=== PATIENT | female | born 1955 | race Two or more races ===

== ENCOUNTER 2017-12-07 12:54 | Inpatient (IN) | payer MEDICAID ==
[~2017-12-07] VITALS: Ht 157.5 cm; Wt 94.8 kg
[2017-12-07] MEDS ORDERED: ONDANSETRON HCL/PF 4 MG/2 ML VIAL IVP ONE (13:30)
[2017-12-07] MEDS ORDERED: MORPHINE SULFATE INJ 2 MG/ML DISP.SYRIN IV ONE (13:30)
[2017-12-07] MEDS ORDERED: IV NS 0.9% 1,000 ML BAG IV ONE (13:30)
--- NOTE | 2017-12-07 13:30 | NUR ---
PT BROUGHT IN FROM HOME WITH EPIGASTRIC PAIN FOR ONE DAY WITH NAUSEA AND VOMITING X 1 PT ALERT ARMEANIAN SPEAKING PT ABLE TO EXPRESS SELF BLOOD SUGAR 283. PIV PLACED BLOOD SAMPLE OBTAINED ULTRA SOUND DONE. PT ST AT 105 EKG DONE WELL. WILL CONTINUE TO MONITOR
[2017-12-07] MEDS ORDERED: ONDANSETRON HCL/PF 4 MG/2 ML VIAL ONE (13:36)
[2017-12-07] MEDS ORDERED: MORPHINE SULFATE INJ 4 MG/ML DISP.SYRIN ONE (13:36)
[2017-12-07 13:37] LABS: BASOPHILS % (AUTO) 0.1 % (0.0-2.0); EOSINOPHILS % (AUTO) 0.1 % (0.0-6.0); HEMATOCRIT 38 % (33-45); HEMOGLOBIN 12.4 g/dL (11.5-14.8); LYMPHOCYTES # (AUTO) 0.4 /CMM (0.8-4.8); LYMPHOCYTES % (AUTO) 2.2 % (20.0-44.0); MEAN CORPUSCULAR HGB CONC 33 g/dl (31.0-36.0); MEAN CORPUSCULAR VOLUME 88 fL (82-100); MONOCYTES # (AUTO) 1.2 /CMM (0.1-1.30); MONOCYTES % (AUTO) 6.1 % (2.0-12.0); NEUTROPHILS # (AUTO) 17.6 /CMM (1.8-8.9); NEUTROPHILS % (AUTO) 91.5 % (43.0-81.0); PLATELET COUNT (AUTO) 208 /CMM (150-450); RDW COEFFICIENT OF VARIATION 12.4 (11.5-15.0); RED BLOOD CELL COUNT(AUTO) 4.28 MIL/uL (4.0-5.2); WHITE BLOOD COUNT (AUTO) 19.2 K/uL (4.3-11.0)
[2017-12-07 13:48] LABS: CALCIUM, SERUM 8.9 mg/dL (8.5-10.1); CARBON DIOXIDE 26 mmol/L (21-32); CHLORIDE 95 mmol/L (98-107); CREATININE 0.9 mg/dL (0.6-1.3); GLUCOSE 313 mg/dL (74-106); POTASSIUM 4.4 mmol/L (3.5-5.1); SODIUM SERUM 132 mmol/L (136-145); UREA NITROGEN, BLOOD 16 mg/dL (7-18)
[2017-12-07 13:53] LABS: ALANINE AMINOTRANSFERASE 17 U/L (12-78); ALBUMIN 3.2 g/dL (3.4-5.0); ALKALINE PHOSPHATASE 104 U/L (46-116); ASPARTATE AMINOTRANSFERASE 16 U/L (15-37); BILIRUBIN,DIRECT 0.1 mg/dL (0.0-0.2); BILIRUBIN,TOTAL 0.6 mg/dL (0.2-1.0); INR 0.94 (0.87-1.13); LIPASE 141 U/L (73-393); TOTAL PROTEIN, SERUM 7.7 g/dL (6.4-8.2)
[2017-12-07 13:58] LABS: TROPONIN I < 0.017 ng/mL (0.00-0.056)
[2017-12-07] MEDS ORDERED: IOHEXOL-300 100 ML VIAL IV ONE (14:21)
[2017-12-07] MEDS ORDERED: IV NS 0.9% 250 ML IV ONE (14:22)
[2017-12-07] MEDS ORDERED: CT SWABBABLE VALVE TRANS SET 1 EA INFUS.SET MC ONE (14:22)
[2017-12-07 15:50] LABS: APPEARANCE,URINE CLOUDY (CLEAR); BILIRUBIN,URINE NEGATIVE (NEGATIVE); BLOOD, URINE 2+ Ery/uL (NEGATIVE); COLOR,URINE YELLOW (YELLOW); KETONES,URINE NEGATIVE (NEGATIVE); LEUKOCYTE ESTERASE ,URINE 1+ (NEGATIVE); NITRITE, URINE POSITIVE (NEGATIVE); PROTEIN,URINE 2+ mg/dl (NEGATIVE); UGLUCOSE 2+ mg/dL (NEGATIVE); UROBILINOGEN,URINE 0.2 EU/dL (0.2)
[2017-12-07] MEDS ORDERED: CEFTRIAXONE 1GM BAG (ER ONLY) 1 GM/50 ML PIGGYBACK IV ONE (16:00)
[2017-12-07 16:03] LABS: BACTERIA,URINE 3+ /HPF (None Seen); SQUAMOUS EPITHELIAL CELL,UR 0-2 /HPF (None Seen); WBC,URINE 21-50 /HPF (0-3)
[2017-12-07] MEDS ORDERED: CEFTRIAXONE 1 G VIAL ONE (16:08)
--- NOTE | 2017-12-07 16:13 | NUR ---
CALLED [facility] WATER TESTER WAS PAGED.
--- NOTE | 2017-12-07 16:39 | NUR ---
JUAN JOSE COHEN CALLED BACK ON THE PHONE WITH PHILIP WILLAMS.
[2017-12-07] MEDS ORDERED: INSU100V7 SQ (16:45)
[2017-12-07] MEDS ORDERED: ROSU5TAB PO (16:45)
[2017-12-07] MEDS ORDERED: ASPI-1169 PO (16:45)
[2017-12-07] MEDS ORDERED: SITA50TA PO (16:45)
[2017-12-07] MEDS ORDERED: INSU100V27 SQ (16:45)
[2017-12-07 17:00] VITALS: BP 117/53
--- NOTE | 2017-12-07 17:35 | NUR ---
LABORER SYRUP MACHINEPHYSICIAN ASSISTANT NOTE RECEIVED PT FROM ER VIA GURNEY WITH SON AND DAUGHTER IN LAW. PT IS ALERT AND ORIENTED X4, DENIES N/V, SOB AND CHEST PAIN AT THIS TIME. VS STABLE, PLACED PT IN GOWN, WITH NEW ID BAND AND CONDUCTOR SYMPHONIC ORCHESTRA. PT IS CURRENTLY SINUS RHYTHM, HR 86. R FA #20G IV IS SALINE LOCKED, CLEAN, DRY AND INTACT. SKIN CHECK AND PHOTOS DOCUMENTED PER POLICY AND PLACED IN CHART. ALL BELONGINGS ACCOUNTED FOR AND BELONGINGS LIST SIGNED AND PLACED IN CHART. UNIT ORIENTATION PROVIDED TO PT AND FAMILY, ALL VERBALIZED UNDERSTANDING OF USING CALL LIGHT TO CALL FOR ASSISTANCE PRIOR TO GETTING PT OUT OF BED. AWAITING ADMITTING ORDERS.
[2017-12-07] MEDS ORDERED: Z GUARD REMEDY 2 OZ OINT TP PRN (18:30)
[2017-12-07] MEDS ORDERED: DEXTROSE 50%-WATER 50 ML DISP.SYRIN IV PRN (18:30)
[2017-12-07] MEDS ORDERED: MAG HYDROX/AL HYDROX/SIMETH 30 ML UDC PO PRN (18:30)
[2017-12-07] MEDS ORDERED: MAGNESIUM HYDROXIDE 30 ML UDC PO PRN (18:30)
[2017-12-07] MEDS ORDERED: MORPHINE SULFATE INJ 2 MG/ML DISP.SYRIN IV PRN (18:30)
[2017-12-07] MEDS ORDERED: ONDANSETRON HCL/PF 4 MG/2 ML VIAL IVP PRN (18:30)
[2017-12-07] MEDS ORDERED: ENOXAPARIN SODIUM 40 MG/0.4 ML DISP.SYRIN SQ SCH (18:30)
[2017-12-07] MEDS ORDERED: HYDROCODONE/APAP 5/325MG 1 EACH TABLET PO PRN (18:30)
[2017-12-07] MEDS ORDERED: ACETAMINOPHEN 325 MG TABLET PO PRN (18:30)
[2017-12-07] MEDS: IV NS 0.9% 1,000 ML IV PRN (18:43)
--- NOTE | 2017-12-07 19:20 | NUR ---
STATION SUPERVISOR CLOSING NOTE PT IN BED SLEEPING. BREATHING IS EVEN AND UNLABORED ON ROOM AIR. NO SIGNS OF ACUTE DISTRESS AT THIS TIME. R FA #20G IV IS INFUSING NS @ 100ML/HR WITHOUT REDNESS OR SWELLING. PT IS ON STATOR WINDER, SINUS RHYTHM, HR IN 80'S. BED IS LOCKED AND IN LOWEST POSITION, SIDE RAILS UP X2, CALL LIGHT IS WITHIN REACH. ENDORSED TO HAM CURER RN FOR CONTINUITY OF CARE.
--- NOTE | 2017-12-07 19:27 | NUR ---
MEN'S GOLF COACH OPENING NOTES PT IS ALERT AND ORIENTED X4, NO N/V, SOB AND CHEST PAIN NOTED AT THIS TIME. PT IS CURRENTLY SINUS RHYTHM, HR 84. R FA #20G IV IS INTACT AND PATENT , ONGOING FLUID NS 0.9% AT 100ML/H.SAFETY PRECAUTIONS ARE IN PLACE. CALL LIGHT WITHIN REACH. WILL CONTINUE TO MONITOR.
[2017-12-07 20:00] VITALS: BP_SYST 117; BP_DIAS 54; BP_DIAS 59
[2017-12-07] MEDS: ATORVASTATIN 40 MG TABLET PO SCH (22:00)
[2017-12-07] MEDS: BLOOD SUGAR DIAGNOSTIC 1 EACH STRIP IN SCH (22:06)
[2017-12-07] MEDS: INSULIN GLARGINE, 100 UNIT/ML CARTRIDGE SQ SCH (22:09)
[2017-12-08] MEDS: IV NS 0.9% 1,000 ML IV PRN ×2 (05:15→16:11)
[2017-12-08] MEDS: BLOOD SUGAR DIAGNOSTIC 1 EACH STRIP IN SCH ×4 (06:31→22:05)
[2017-12-08] MEDS: INSULIN REGULAR, HUMAN 100 UNIT/ML 3 ML VIAL SQ PRN ×3 (06:37→22:08)
--- NOTE | 2017-12-08 06:53 | NUR ---
CIVIL DEFENSE DIRECTOR CLOSING NOTES PT IS ALERT AND ORIENTED X4, NO N/V, NO SOB OR PAIN NOTED AT THIS TIME. PT IS CURRENTLY SINUS RHYTHM, HR 82. R FA #20G IV IS INTACT AND PATENT , ONGOING FLUID NS 0.9% [id number]/H. SAFETY PRECAUTIONS ARE IN PLACE. CALL LIGHT WITHIN REACH. WILL ENDORSE TO NEXT SHIFT FOR JENA.
[2017-12-08 07:39] LABS: CALCIUM, SERUM 8.1 mg/dL (8.5-10.1); CREATININE 0.8 mg/dL (0.6-1.3); MAGNESIUM 1.9 mg/dL (1.8-2.4); PHOSPHORUS 3.1 mg/dL (2.5-4.9); POTASSIUM 4.1 mmol/L (3.5-5.1)
[2017-12-08 07:41] LABS: BASOPHILS % (AUTO) 0.3 % (0.0-2.0); EOSINOPHILS % (AUTO) 0.2 % (0.0-6.0); HEMATOCRIT 34 % (33-45); HEMOGLOBIN 11.2 g/dL (11.5-14.8); LYMPHOCYTES % (AUTO) 8.1 % (20.0-44.0); MEAN CORPUSCULAR HGB CONC 34 g/dl (31.0-36.0); MEAN CORPUSCULAR VOLUME 89 fL (82-100); MONOCYTES % (AUTO) 7.8 % (2.0-12.0); NEUTROPHILS # (AUTO) 10.8 /CMM (1.8-8.9); NEUTROPHILS % (AUTO) 83.6 % (43.0-81.0); PLATELET COUNT (AUTO) 217 /CMM (150-450); RDW COEFFICIENT OF VARIATION 12.9 (11.5-15.0); RED BLOOD CELL COUNT(AUTO) 3.77 MIL/uL (4.0-5.2); WHITE BLOOD COUNT (AUTO) 12.9 K/uL (4.3-11.0)
[2017-12-08 07:45] LABS: THYROID STIMULATING HORMONE 1.034 uIU/mL (0.358-3.74)
[2017-12-08 08:00] VITALS: BP 136/66
--- NOTE | 2017-12-08 08:40 | NUR ---
FLIGHT COMMUNICATIONS OPERATOR NOTES RECEIVED PATIENT IN BED, AWAKE ALERT AND ORIENTED X4, BREATHING EVEN AND UNLABORED ON RA. NO COMPLAINT OF PAIN OR DISCOMFORT. INFUSING IV FLUIDS NS 100ML/HR VIA IV ACCESS ON THE R FOREARM. BED IN LOWEST LOCKED POSITION, CALL LIGHT WITHIN REACH, WILL CONTINUE TO MONITOR.
[2017-12-08] MEDS ORDERED: SITAGLIPTIN PHOSPHATE 50 MG TABLET PO SCH (09:00)
[2017-12-08] MEDS: ASPIRIN 81 MG TAB.CHEW PO SCH (09:12)
[2017-12-08] MEDS ORDERED: MORPHINE SULFATE INJ 4 MG/ML DISP.SYRIN IV PRN (14:16)
[2017-12-08] MEDS: CEFTRIAXONE 1 G in IV D5W 50 ML IV SCH (15:57)
[2017-12-08 16:00] VITALS: BP 144/72
--- NOTE | 2017-12-08 18:19 | NUR ---
RN CLOSING NOTES PATIENT REMAINS IN BED, AWAKE, A/OX4, BREATHING EVEN AND UNLABORED ON ROOM AIR. INFUSING IV FLUIDS NS 100ML/HR VIA R FA IV ACCESS, PATENT AND FLUSHING. AMBULATING WITH ASSIST AND TOLERATING. NO COMPLAINT OF PAIN OR DISCOMFORT AT THE TIME, ALL VITALS STABLE, BED IN LOWEST LOCKED POSITION, CALL LIGHT WITHIN REACH. WILL ENDORSE TO NIGHT NURSE FOR JENA
--- NOTE | 2017-12-08 19:55 | NUR ---
RN INITIAL NOTES: RECEIVED REPORT FROM JOIE DRISCOLL. PT IN BED, AWAKE, A/O X4, ON RA RESPIRATION EVEN AND UNLABORED. DENIES ANY ABDOMINAL PAIN OR NAUSEA AT THIS TIME, BUT STATED SHE'S FEELING WEAK TODAY. IV ACCESS PATENT AND FLUSHING WELL, INFUSING WITH NS AT 100ML/HR. SAFETY PRECAUTIONS FOR FALL INITIATED, CALL LIGHT IN REACH, WILL CONTINUE MONITORING PT.
[2017-12-08 20:00] VITALS: BP 146/58
[2017-12-08] MEDS: ATORVASTATIN 40 MG TABLET PO SCH (22:06)
[2017-12-08] MEDS: INSULIN GLARGINE, 100 UNIT/ML CARTRIDGE SQ SCH (22:10)
--- NOTE | 2017-12-08 22:11 | NUR ---
ACU CHECK 298: BLOOD SUGAR CHECKED AND RESULT IS 298, 6UNITS OF INSULIN GIVEN PER SLIDING SCALE. PT TOLERATING PO INTAKE WELL, WILL MONITOR FOR ANY S/S OF HYPOGLYCEMIA
[2017-12-09] MEDS: IV NS 0.9% 1,000 ML IV PRN ×2 (04:11→17:37)
[2017-12-09 05:41] LABS: CREATININE 0.8 mg/dL (0.6-1.3); POTASSIUM 4.4 mmol/L (3.5-5.1)
[2017-12-09] MEDS: BLOOD SUGAR DIAGNOSTIC 1 EACH STRIP IN SCH ×4 (05:49→21:10)
[2017-12-09] MEDS: INSULIN REGULAR, HUMAN 100 UNIT/ML 3 ML VIAL SQ PRN ×4 (05:51→21:19)
--- NOTE | 2017-12-09 05:52 | NUR ---
ACCU CHECK 249: BLOOD SUGAR CHECK PERFORMED AND RESULT IS 249, 4UNITS OF INSULIN GIVEN PER SLIDING SCALE, WILL MONITOR PT FOR S/S OF HYPOGLYCEMIA
[2017-12-09 06:00] LABS: BASOPHILS % (AUTO) 0.3 % (0.0-2.0); EOSINOPHILS % (AUTO) 1.5 % (0.0-6.0); HEMATOCRIT 32 % (33-45); HEMOGLOBIN 10.5 g/dL (11.5-14.8); LYMPHOCYTES # (AUTO) 1.3 /CMM (0.8-4.8); LYMPHOCYTES % (AUTO) 16.8 % (20.0-44.0); MEAN CORPUSCULAR HGB CONC 33 g/dl (31.0-36.0); MEAN CORPUSCULAR VOLUME 89 fL (82-100); MONOCYTES % (AUTO) 12.9 % (2.0-12.0); NEUTROPHILS # (AUTO) 5.5 /CMM (1.8-8.9); NEUTROPHILS % (AUTO) 68.5 % (43.0-81.0); PLATELET COUNT (AUTO) 210 /CMM (150-450); RDW COEFFICIENT OF VARIATION 12.8 (11.5-15.0); RED BLOOD CELL COUNT(AUTO) 3.57 MIL/uL (4.0-5.2)
--- NOTE | 2017-12-09 06:47 | NUR ---
RN NOTES: PT C/O ABDOMINAL PAIN, OFFERED P[AIN MEDICATION BUT PT REFUSING, EDUCATION PROVIDED TO THE PT.
--- NOTE | 2017-12-09 06:53 | NUR ---
RN CLOSING NOTES: PT IN BED, AWAKE, A/O X4, DENIES ANY ABDOMINAL PAIN OR VOMITING, BUT CONTINUED TO C/O WEAKNESS. IV ACCESS REMAINS PATENT AND FLUSHING WELL, INFUSING WITH NS AT 100ML/HR. VS REMAINS STABLE, NEEDS ATTENDED. NO FURTHER COMPLAINTS NOTED. SAFETY PRECAUTIONS FOR FALL REMAINS ENGAGED, CALL LIGHT IN REACH, BED ALARM SECURED. WILL ENDORSE TO DAY RN FOR CONTINUITY OF CARE.
--- NOTE | 2017-12-09 07:40 | NUR ---
MS RN RECEIVED ON BED, AWAKE,ALERT,ORIENTED X3,NOT IN ANY FORM OF DISTRESS, RESPIRATIONS EVEN AND UNLABORED,NO SOB NOTED, LUNGS ARE CLEAR, ABDOMEN SOFT,POSITIVE BOWEL SOUNDS, DENIES PAIN AT THIS TIME, WILL MONITOR PATIENT'S CONDITION.
[2017-12-09 08:00] VITALS: BP 135/63
--- NOTE | 2017-12-09 08:00 | NUR ---
MS DRISCOLL BREAKFAST SERVED,DUE MEDS GIVEN, TOLERATED WELL.
[2017-12-09] MEDS: LINAGLIPTIN 5 MG TABLET PO SCH (08:09)
[2017-12-09] MEDS: ENOXAPARIN SODIUM 40 MG/0.4 ML DISP.SYRIN SQ SCH (08:10)
[2017-12-09] MEDS: ASPIRIN 81 MG TAB.CHEW PO SCH (08:10)
--- NOTE | 2017-12-09 08:20 | NUR ---
MS YAMILA WAS SEEN BY CAMILLE ANN W/ ORDERS MADE AND CARRIED OUT.
--- NOTE | 2017-12-09 12:00 | NUR ---
MS DRISCOLL BS - 190 - 3 UNITS REGULAR INSULIN GIVEN.
[2017-12-09 16:00] VITALS: BP 135/61
[2017-12-09] MEDS: CEFTRIAXONE 1 G in IV D5W 50 ML IV SCH (16:10)
--- NOTE | 2017-12-09 17:30 | NUR ---
ms rn bs - 198 - 3 units regular insulin given sq, no distress noted.
--- NOTE | 2017-12-09 18:02 | NUR ---
ms rn no distress noted,all needs attended.
--- NOTE | 2017-12-09 19:05 | NUR ---
RN MS OPENING NOTES RECEIVED PATIENT AWAKE ALERT AND ORIENTED X 4, ABLE TO MAKE NEEDS KNOWN, RESPIRATIONS EVEN AND UNLABORED WITH EQUAL RISE AND FALL CHEST, PATIENT COMPLAINT OF HEADACHE, OFFERED TYLENOL OR NORCO, PATIENT REFUSED AT THIS TIME STATES " SHE DOESNT REALLY LIKE TO TAKE TO MUCH MEDICATION AND IS OKAY FOR NOW." IV SITE TO RIGHT FA #20 G INTACT AND PATENT, NO REDNESS , NO INFILTRATION PRESENT, IVF RUNNING ORDERED, ORIENTED TO STAFF AND CALL LIGHT, SAFETY PRECAUTIONS IN PLACE, LOW BED AND LOCKED CALL LIGHT KEPT WITHIN REACH, ROOM IS FREE FROM CLUTTER, FLUIDS OFFERED ALL NEEDS ATTENDED AT THIS TIME, WILL CONTINUE TO MONITOR.
[2017-12-09 20:00] VITALS: BP 128/67
[2017-12-09] MEDS: ATORVASTATIN 40 MG TABLET PO SCH (21:10)
[2017-12-09] MEDS: INSULIN GLARGINE, 100 UNIT/ML CARTRIDGE SQ SCH (21:20)
[2017-12-10] MEDS: IV NS 0.9% 1,000 ML IV PRN ×2 (04:30→21:19)
[2017-12-10] MEDS: BLOOD SUGAR DIAGNOSTIC 1 EACH STRIP IN SCH ×4 (06:30→21:18)
--- NOTE | 2017-12-10 06:30 | NUR ---
RN MS NOTES ACCUCHECK 122 NO INSULIN NEEDED AT THIS TIME.
--- NOTE | 2017-12-10 06:31 | NUR ---
RN MS CLOSING NOTES PATIENT AWAKE ALERT AND ORIENTED X 4, ABLE TO MAKE NEEDS KNOWN, RESPIRATIONS EVEN AND UNLABORED WITH EQUAL RISE AND FALL CHEST, DENIES ANY PAIN OR DISCOMFORT AT THIS TIME, IV SITE TO RIGHT FA #20 G INTACT AND PATENT, NO REDNESS , NO INFILTRATION PRESENT, IVF RUNNING ORDERED, CALL LIGHT KEPT WITHIN REACH, SAFETY PRECAUTIONS IN PLACE, LOW BED AND LOCKED , ROOM IS FREE FROM CLUTTER, FLUIDS OFFERED ALL NEEDS ATTENDED AT THIS TIME, WILL CONTINUE TO MONITOR AND ENDORSE TO NEXT SHIFT , NO CHANGES THROUGHOUT SHIFT. ALL MEDICATIONS GIVEN ORDERED.
[2017-12-10 06:58] LABS: BASOPHILS % (AUTO) 0.4 % (0.0-2.0); EOSINOPHILS % (AUTO) 2.1 % (0.0-6.0); HEMATOCRIT 33 % (33-45); HEMOGLOBIN 10.9 g/dL (11.5-14.8); LYMPHOCYTES # (AUTO) 1.4 /CMM (0.8-4.8); LYMPHOCYTES % (AUTO) 19.9 % (20.0-44.0); MEAN CORPUSCULAR HGB CONC 34 g/dl (31.0-36.0); MEAN CORPUSCULAR VOLUME 88 fL (82-100); MONOCYTES # (AUTO) 0.7 /CMM (0.1-1.30); MONOCYTES % (AUTO) 10.3 % (2.0-12.0); NEUTROPHILS # (AUTO) 4.8 /CMM (1.8-8.9); NEUTROPHILS % (AUTO) 67.3 % (43.0-81.0); PLATELET COUNT (AUTO) 217 /CMM (150-450); RED BLOOD CELL COUNT(AUTO) 3.69 MIL/uL (4.0-5.2); WHITE BLOOD COUNT (AUTO) 7.1 K/uL (4.3-11.0)
[2017-12-10 07:07] LABS: CALCIUM, SERUM 8.6 mg/dL (8.5-10.1); CREATININE 0.7 mg/dL (0.6-1.3)
--- NOTE | 2017-12-10 07:40 | NUR ---
JEWELRY SETTER OPENING NOTES RECEIVED PATIENT IN STABLE CONDITION. IN NO APPARENT DISTRESS. BEDSIDE RAILS ARE UPX2. BED IS LOCKED AND LOWERED. CALL LIGHT IS WITHIN REACH. IV LINE IS INTACT AND PATENT. WILL CONTINUE TO MONITOR PATIENT.
[2017-12-10 08:00] VITALS: BP 144/63
[2017-12-10] MEDS: ASPIRIN 81 MG TAB.CHEW PO SCH (08:24)
[2017-12-10] MEDS: LINAGLIPTIN 5 MG TABLET PO SCH (08:24)
[2017-12-10] MEDS: ENOXAPARIN SODIUM 40 MG/0.4 ML DISP.SYRIN SQ SCH (08:29)
[2017-12-10] MEDS: INSULIN REGULAR, HUMAN 100 UNIT/ML 3 ML VIAL SQ PRN ×3 (11:48→21:29)
--- NOTE | 2017-12-10 14:47 | NUR ---
NM HIDA SCAN WAS COMPLETED. TECH:RB.
[2017-12-10] MEDS: CEFTRIAXONE 1 G in IV D5W 50 ML IV SCH (15:50)
[2017-12-10 16:00] VITALS: BP 153/80
--- NOTE | 2017-12-10 18:16 | NUR ---
MS RN CLOSING NOTES PATIENT IS IN STABLE CONDITION. IN NO APPARENT DISTRESS. BEDSIDE RAILS ARE UPX2. BED IS LOCKED AND LOWERED. CALL LIGHT IS WITHIN REACH. IV LINE IS INTACT AND PATENT. ALL NEEDS WERE MET. WILL ENDORSE CARE TO GEOGRAPHIC AREA INTELLIGENCE OFFICER NURSE FOR JENA.
--- NOTE | 2017-12-10 19:50 | NUR ---
MS RN NOTE: PATIENT RESTING IN BED, NO ACUTE DISTRESS NOTED. BREATHING EVEN AND UNLABORED, NO SOB NOTED. IV TO RFA IN PLACE, INFUSING NS AT 100ML/HR. NO S/S OF HYPER/HYPOGLYCEMIA NOTED. BED LOCKED AND IN LOWEST POSITION, CALL LIGHT IN REACH. WILL CONTINUE TO MONITOR.
[2017-12-10 20:00] VITALS: BP 146/76
[2017-12-10] MEDS: ATORVASTATIN 40 MG TABLET PO SCH (21:18)
[2017-12-10] MEDS: INSULIN GLARGINE, 100 UNIT/ML CARTRIDGE SQ SCH (21:28)
--- NOTE | 2017-12-10 21:45 | NUR ---
MS RN NOTE: PATIENT BLOOD SUGAR LEVEL 180MG/DL, PATIENT TO RECEIVE 62 UNITS OF LANTUS PER MD ORDER AND 3 UNITS OF INSULIN PER SLIDING SCALE. NO S/S OF HYPER/HYPOGLYCEMIA NOTED. SNACKS PROVIDED. WILL CONTINUE TO MONITOR.
--- NOTE | 2017-12-11 06:38 | NUR ---
MS RN NOTE: PATIENT RESTING IN BED, NO ACUTE DISTRESS NOTED. BREATHING EVEN AND UNLABORED, NO SOB NOTED. IV TO RFA IN PLACE, INFUSING NS AT 100ML/HR. PATIENT BLOOD SUGAR LEVEL 129MG/DL, NO INSULIN NEEDED PER SLIDING SCALE, NO S/S OF HYPER/HYPOGLYCEMIA NOTED. BED LOCKED AND IN LOWEST POSITION, CALL LIGHT IN REACH. WILL ENDORSE TO DAY NURSE TO CONTINUE WITH PLAN OF CARE.
--- NOTE | 2017-12-11 07:30 | NUR ---
RN OPENING NOTES RECEIVED PT. IN BED A&OX4. BREATHING UNLABORED ON ROOM AIR. NO S/S OF ACUTE DISTRESS. IV FLUIDS AT BEDSIDE. BED IS IN LOWEST, AND LOCKED POSITION. 2 SIDE RAILS UP, AND INSTRUCTED PT. TO USE CALL LIGHT FOR ASSISTANCE. ALL NEEDS MET. WILL CONTINUE TO ASSESS AND MONITOR.
[2017-12-11] MEDS: BLOOD SUGAR DIAGNOSTIC 1 EACH STRIP IN SCH ×2 (07:52→11:52)
[2017-12-11 08:00] VITALS: BP 140/64
[2017-12-11] MEDS ORDERED: PANTOPRAZOLE 40 MG TABLET.DR PO SCH (08:00)
[2017-12-11] MEDS ORDERED: LEVO750T21 PO (08:01)
[2017-12-11] MEDS ORDERED: PANT40TA2 PO (08:01)
[2017-12-11] MEDS: ASPIRIN 81 MG TAB.CHEW PO SCH (08:13)
[2017-12-11] MEDS: ENOXAPARIN SODIUM 40 MG/0.4 ML DISP.SYRIN SQ SCH (08:16)
[2017-12-11] MEDS: LINAGLIPTIN 5 MG TABLET PO SCH (08:20)
[2017-12-11] MEDS: IV NS 0.9% 1,000 ML IV PRN (11:44)
[2017-12-11] MEDS: INSULIN REGULAR, HUMAN 100 UNIT/ML 3 ML VIAL SQ PRN (11:55)
--- NOTE | 2017-12-11 14:46 | NUR ---
DISCHARGE PT. WAS DISCHARGED IN STABLE CONDITION. PT. LEFT WITH SON IN PRIVATE CAR. DISCHARGE INSTRUCTIONS WERE PROVIDED WITH EDUCATIONS. PT. VERBALIZED UNDERSTANDING. MEDICATIONS, AND PRESCRIPTION WAS EXPLAINED AND PT. VERBALIZED UNDERSTANDING. DISCHARGE PAPERS WERE SIGNED. BELONGINGS LIST WAS CHECKED AND SIGNED. ID, AND IV WAS REMOVED WITHOUT COMPLICATIONS. ALL QUESTIONS ANSWERED. PT. LEFT WITH DISCHARGE PACKET, AND BELONGINGS BY A WHEELCHAIR.
== END 2017-12-11 11:45 | disposition home or self-care (01) | DRG 720 ==
LOC: ER 12:59 → TELE 16:56 → MED 12-08 09:48
PROVIDERS: ADMIT Nurse Practitioner Acute Care; ATTEND Internal Medicine
DX: A41.9 Sepsis, unspecified organism (principal); E46 Unspecified protein-calorie malnutrition; E11.65 Type 2 diabetes mellitus with hyperglycemia; K76.0 Fatty (change of) liver, not elsewhere classified; E87.1 Hypo-osmolality and hyponatremia; N39.0 Urinary tract infection, site not specified; D64.9 Anemia, unspecified; R65.20 Severe sepsis without septic shock; E66.9 Obesity, unspecified; E87.6 Hypokalemia; R10.9 Unspecified abdominal pain; E78.5 Hyperlipidemia, unspecified; Z68.38 Body mass index [BMI] 38.0-38.9, adult; Z83.3 Family history of diabetes mellitus; B96.20 Unspecified Escherichia coli [E. coli] as the cause of diseases classified elsewhere
CPT/HCPCS: 36415; 71045-TC; 76700-TC; 76705-TC; 78226; 80048-TC; 80061-TC; 80076-TC; 81000-TC; 82962-TC; 83605-TC; 83690-TC; 83735-TC; 84100-TC; 84443-TC; 84484-TC; 85025-TC; 85730-TC; 87040-TC; 87081-TC; 87086-TC; 87186-TC; A4606; A9537; G0378; J0696; J1650; J1815; J2270; J2405; J7030; J7050; J7060; Q9967; Z7610

== ENCOUNTER 2018-04-10 18:26 | Emergency (ER) | payer MEDICAID ==
[~2018-04-10] VITALS: Ht 147.3 cm; Wt 90.7 kg
[~2018-04-10 18:26] MED LIST: ASPI-1169 PO; INSU100V27 SQ; INSU100V7 SQ; LEVO750T21 PO; PANT40TA2 PO; ROSU5TAB PO; SITA50TA PO
--- NOTE | 2018-04-10 18:30 | NUR ---
PT POONAM FROM HOME TO ER BED 07 C/O DIZZINESS, HEADACHE W/ NAUASEA AND VOMITING SINCE YESTERDAY, HYPERTENSIVE ENCHILADA MAKER W/ BG OF 350. GOWNED AND PLACED ON MONITOR. AWAITING MD RODRIGUEZ.
--- NOTE | 2018-04-10 19:23 | NUR ---
DR GARNER AT BEDSIDE FOR EVAL.
[2018-04-10] MEDS ORDERED: ONDANSETRON HCL/PF 4 MG/2 ML VIAL IVP ONE (19:30)
[2018-04-10] MEDS ORDERED: IV NS 0.9% 1,000 ML BAG IV ONE (19:30)
--- NOTE | 2018-04-10 19:34 | NUR ---
IV INITIATED LEFT AC 20G. LABS DRAWN FROM SITE. ACQUISITIONS ANALYST AT BEDSIDE FOR BLOOD DRAW. IV INTACT AND PATENT, PLACED ON SALINE LOCK
[2018-04-10] MEDS ORDERED: ONDANSETRON HCL/PF 4 MG/2 ML VIAL ONE (19:36)
[2018-04-10 19:39] LABS: BASOPHILS % (AUTO) 0.4 % (0.0-2.0); EOSINOPHILS % (AUTO) 0.1 % (0.0-6.0); HEMATOCRIT 42 % (33-45); HEMOGLOBIN 14.4 g/dL (11.5-14.8); LYMPHOCYTES % (AUTO) 9.7 % (20.0-44.0); MEAN CORPUSCULAR HGB CONC 34 g/dl (31.0-36.0); MEAN CORPUSCULAR VOLUME 88 fL (82-100); MONOCYTES # (AUTO) 0.5 /CMM (0.1-1.30); MONOCYTES % (AUTO) 5.1 % (2.0-12.0); NEUTROPHILS % (AUTO) 84.7 % (43.0-81.0); PLATELET COUNT (AUTO) 252 /CMM (150-450); RED BLOOD CELL COUNT(AUTO) 4.77 MIL/uL (4.0-5.2); WHITE BLOOD COUNT (AUTO) 10.6 K/uL (4.3-11.0)
--- NOTE | 2018-04-10 19:55 | NUR ---
URINE COLLECTED AND SENT TO LAB
[2018-04-10 20:00] LABS: ALANINE AMINOTRANSFERASE 21 U/L (12-78); ALBUMIN 3.3 g/dL (3.4-5.0); ALKALINE PHOSPHATASE 109 U/L (46-116); ASPARTATE AMINOTRANSFERASE 14 U/L (15-37); BILIRUBIN,DIRECT 0.1 mg/dL (0.0-0.2); BILIRUBIN,TOTAL 0.5 mg/dL (0.2-1.0); CALCIUM, SERUM 9.3 mg/dL (8.5-10.1); CARBON DIOXIDE 31 mmol/L (21-32); CHLORIDE 100 mmol/L (98-107); CREATININE 0.9 mg/dL (0.6-1.3); POTASSIUM 4.5 mmol/L (3.5-5.1); SODIUM SERUM 136 mmol/L (136-145); TOTAL PROTEIN, SERUM 7.9 g/dL (6.4-8.2)
[2018-04-10 20:01] LABS: APPEARANCE,URINE Slightly Cloudy (CLEAR); BILIRUBIN,URINE Negative (NEGATIVE); BLOOD, URINE Moderate Ery/uL (NEGATIVE); COLOR,URINE Yellow (YELLOW); KETONES,URINE 40 (NEGATIVE); LEUKOCYTE ESTERASE ,URINE Negative (NEGATIVE); NITRITE, URINE Positive (NEGATIVE); PROTEIN,URINE >=300 mg/dl (NEGATIVE); UGLUCOSE >=1000 mg/dL (NEGATIVE); UROBILINOGEN,URINE 0.2 EU/dL (0.2)
[2018-04-10 20:02] LABS: GLUCOSE 421 mg/dL (74-106)
[2018-04-10 20:13] LABS: BACTERIA,URINE Many /HPF (None Seen); SQUAMOUS EPITHELIAL CELL,UR Few /HPF (None Seen)
[2018-04-10 20:14] LABS: UREA NITROGEN, BLOOD 21 mg/dL (7-18)
--- NOTE | 2018-04-10 20:39 | NUR ---
Patient is resting comfortably in bed with eyes closed. Easily aroused. VSS. FAMILY AT BEDSIDE.
[2018-04-10 21:10] LABS: BAND % (MANUAL) 19 % (0.0-5.0); LYMPHOCYTES % (MANUAL) 12 % (16-48); MONOCYTES % (MANUAL) 7 % (0-11.0); NEUTROPHILS % (MANUAL) 62 (42-76)
[2018-04-10] MEDS ORDERED: CEFTRIAXONE 1 G in IV D5W 50 ML IV ONE (21:30)
[2018-04-10] MEDS ORDERED: CEFTRIAXONE 1GM BAG (ER ONLY) 50 ML IV ONE (21:35)
[2018-04-10] MEDS ORDERED: FAMOTIDINE/PF INJ 20 MG/2 ML VIAL IV ONE ×2 (21:54→22:00)
--- NOTE | 2018-04-10 22:42 | NUR ---
CHUNG (SON) CONTACT INFORMATION:
[2018-04-10] MEDS ORDERED: INSULIN REGULAR, HUMAN 100 UNIT/ML 10 ML VIAL SQ ONE (23:00)
[2018-04-10] MEDS ORDERED: INSULIN REGULAR, HUMAN 100 UNIT/ML 10 ML VIAL ONE (23:31)
--- NOTE | 2018-04-11 00:09 | NUR ---
BS 359. AWARE.
--- NOTE | 2018-04-11 03:08 | NUR ---
PT ACCEPTED TO [facility] ROOM [id number] ROTH. # FOR REPORT [phone]
--- NOTE | 2018-04-11 03:31 | NUR ---
ETA FOR [facility] [id number]
--- NOTE | 2018-04-11 04:57 | NUR ---
REPORT GIVEN TO YAMILA CAICEDO AT [facility] FOR JENA
[2018-04-11 05:26] VITALS: BP 150/76
[2018-04-11] MEDS ORDERED: ONDANSETRON HCL/PF 4 MG/2 ML VIAL ONE (06:11)
[2018-04-11] MEDS ORDERED: ONDANSETRON HCL/PF 4 MG/2 ML VIAL IVP ONE (06:30)
== END 2018-04-11 06:25 ==
LOC: ER 18:32
DX: R11.2 Nausea with vomiting, unspecified (principal); D72.825 Bandemia; N39.0 Urinary tract infection, site not specified; E11.65 Type 2 diabetes mellitus with hyperglycemia; R42 Dizziness and giddiness; Z98.890 Other specified postprocedural states; Z79.4 Long term (current) use of insulin; Z79.82 Long term (current) use of aspirin; Z89.022 Acquired absence of left finger(s)
CPT/HCPCS: 36415; 70450; 71045; 76705; 80048; 80076; 81001; 82962; 83605; 84484; 85025; 85730; 87077; 87086; 87186; 93005; 96361; 96365; 96372; 96375; 96376; 99285; A4606; J0696 ×2; J1815; J2405 ×2; J3490; J7030; J7060; 81000-TC

== ENCOUNTER 2018-09-19 22:53 | Emergency (ER) | payer MEDICAID ==
[~2018-09-19] VITALS: Ht 160 cm; Wt 95.3 kg
[2018-09-19 23:12] LABS: APPEARANCE,URINE Clear (CLEAR); BILIRUBIN,URINE Negative (NEGATIVE); BLOOD, URINE Trace-lysed Ery/uL (NEGATIVE); COLOR,URINE Yellow (YELLOW); KETONES,URINE Negative (NEGATIVE); LEUKOCYTE ESTERASE ,URINE Negative (NEGATIVE); NITRITE, URINE Negative (NEGATIVE); PROTEIN,URINE >=300 mg/dl (NEGATIVE); UGLUCOSE Negative (NEGATIVE)
--- NOTE | 2018-09-19 23:15 | NUR ---
SWETA FROM HOME. TO ER BED 9. AAOX4, NAD NOTED, BREATHING EVEN AND UNLABORED. C/O DIZZYNESS, NAUSEA AND EPISODES OF VOMITING 2ND TO VERTIGO. PT REPORTS THAT ROOM IS SPINNING. PT ALSO REPORT RUQ ABDOMEN PAIN. PER SON SHE THE RUQ PAIN IS PRESENT WHEN SHE HAS UTI. MD AT BEDSIDE FOR EVAL.
--- NOTE | 2018-09-19 23:28 | NUR ---
IV OBTAINED ON R AC 20G. BLOOD DRAWN AND SENT TO LAB. EKG AT BEDSIDE
[2018-09-19 23:29] LABS: BACTERIA,URINE Rare /HPF (None Seen); SQUAMOUS EPITHELIAL CELL,UR Few /HPF (None Seen); WBC,URINE NONE SEEN /HPF (0-3)
[2018-09-19 23:29] LABS: BASOPHILS % (AUTO) 0.3 % (0.0-2.0); EOSINOPHILS % (AUTO) 0.5 % (0.0-6.0); HEMATOCRIT 39 % (33-45); HEMOGLOBIN 13.4 g/dL (11.5-14.8); LYMPHOCYTES # (AUTO) 0.7 /CMM (0.8-4.8); LYMPHOCYTES % (AUTO) 7.5 % (20.0-44.0); MEAN CORPUSCULAR HGB CONC 34 g/dl (31.0-36.0); MEAN CORPUSCULAR VOLUME 88 fL (82-100); MONOCYTES % (AUTO) 9.8 % (2.0-12.0); NEUTROPHILS # (AUTO) 8.2 /CMM (1.8-8.9); NEUTROPHILS % (AUTO) 81.9 % (43.0-81.0); PLATELET COUNT (AUTO) 232 /CMM (150-450); RED BLOOD CELL COUNT(AUTO) 4.46 MIL/uL (4.0-5.2)
[2018-09-19] MEDS ORDERED: ONDANSETRON HCL/PF 4 MG/2 ML VIAL ONE (23:29)
[2018-09-19] MEDS ORDERED: KETOROLAC TROMETHAMINE INJ 30 MG/ML VIAL ONE (23:29)
[2018-09-19] MEDS ORDERED: ONDANSETRON HCL/PF 4 MG/2 ML VIAL IVP ONE (23:30)
[2018-09-19] MEDS ORDERED: IV NS 0.9% 1,000 ML BAG IV ONE (23:30)
[2018-09-19] MEDS ORDERED: KETOROLAC TROMETHAMINE INJ 30 MG/ML VIAL IV ONE (23:30)
[2018-09-19 23:41] LABS: CARBON DIOXIDE 31 mmol/L (21-32); CHLORIDE 101 mmol/L (98-107); CREATININE 0.9 mg/dL (0.6-1.3); GLUCOSE 95 mg/dL (74-106); POTASSIUM 4.2 mmol/L (3.5-5.1); SODIUM SERUM 137 mmol/L (136-145); UREA NITROGEN, BLOOD 18 mg/dL (7-18)
[2018-09-19 23:47] LABS: ALANINE AMINOTRANSFERASE 24 U/L (12-78); ALBUMIN 3.2 g/dL (3.4-5.0); ALKALINE PHOSPHATASE 90 U/L (46-116); ASPARTATE AMINOTRANSFERASE 21 U/L (15-37); BILIRUBIN,DIRECT 0.1 mg/dL (0.0-0.2); BILIRUBIN,TOTAL 0.4 mg/dL (0.2-1.0); LIPASE 60 U/L (73-393); TOTAL PROTEIN, SERUM 7.3 g/dL (6.4-8.2)
--- NOTE | 2018-09-19 23:48 | NUR ---
[facility]
--- NOTE | 2018-09-20 | NUR ---
us at bedside
--- NOTE | 2018-09-20 02:05 | NUR ---
Patient discharged to home in stable condition. Written and verbal after care instructions given. Patient verbalizes understanding of instruction.IV removed. Catheter intact and site benign. Pressure and 4x4 applied to site. No bleeding noted. Pt ambulatory with a steady gait
[2018-09-20 02:07] VITALS: BP 77/140
== END 2018-09-20 01:30 | disposition home or self-care (01) ==
LOC: ER 22:54
DX: K80.70 Calculus of gallbladder and bile duct without cholecystitis without obstruction (principal); R42 Dizziness and giddiness; I10 Essential (primary) hypertension; E11.9 Type 2 diabetes mellitus without complications; Z98.890 Other specified postprocedural states; Z79.82 Long term (current) use of aspirin; Z79.4 Long term (current) use of insulin
CPT/HCPCS: 36415; 71045; 74176; 76705; 80048; 80076; 81001; 83690; 84484; 85025; 93005; 96361; 96374; 96375; 99284; J1885; J2405; J7030; 81000-TC

== ENCOUNTER 2020-09-11 18:53 | Inpatient (IN) | payer MEDICARE, OTHER ==
[~2020-09-11] VITALS: Ht 152.4 cm; Wt 104.8 kg
--- NOTE | 2020-09-11 18:53 | NUR ---
PT BIB SON FRM HOME FOR DIZZINESS AND ALTERED MENTAL STATUS. LKW 9934. PT IS AAOX2, NOT IN RESPIRATORY DISTRESS, HOOKED TO [employer]BESTOS TEXTILE SUPERVISOR, KEPT RESTED AND COMFORTABLE. WILL CONTINUE TO MONITOR.
[2020-09-11] MEDS ORDERED: DEXTROSE 50%-WATER 50 ML DISP.SYRIN ONE (18:58)
--- NOTE | 2020-09-11 19:00 | NUR ---
IV LINE ESTABLISHED BLOOD DRAWN AND SENT TO LAB.
--- NOTE | 2020-09-11 19:06 | NUR ---
CODE STROKE ACTIVATED.
--- NOTE | 2020-09-11 19:07 | NUR ---
HOUSE SUP AT BEDSIDE.
--- NOTE | 2020-09-11 19:09 | NUR ---
TRANSFERRED TO RADIOLOGY FOR CT.
--- NOTE | 2020-09-11 19:24 | NUR ---
COVID SWAB SENT TO LAB
[2020-09-11 19:28] LABS: CALCIUM, SERUM 9.2 mg/dL (8.5-10.1); CARBON DIOXIDE 27 mmol/L (21-32); CHLORIDE 103 mmol/L (98-107); CREATININE 1.3 mg/dL (0.6-1.3); GLUCOSE 82 mg/dL (74-106); POTASSIUM 3.9 mmol/L (3.5-5.1); SODIUM SERUM 141 mmol/L (136-145); UREA NITROGEN, BLOOD 26 mg/dL (7-18)
[2020-09-11] MEDS ORDERED: IV NS 0.9% 1,000 ML BAG IV ONE (19:30)
--- NOTE | 2020-09-11 19:32 | NUR ---
dr. bonilla on the telestroke monitor.
[2020-09-11 19:43] LABS: BASOPHILS # (AUTO) 0.1 K/uL (0.0-0.2); BASOPHILS % (AUTO) 0.6 % (0.0-2.0); EOSINOPHILS % (AUTO) 6.6 % (0.0-6.0); HEMATOCRIT 32 % (33-45); LYMPHOCYTES # (AUTO) 2.3 K/uL (0.8-4.8); LYMPHOCYTES % (AUTO) 17.8 % (20.0-44.0); MEAN CORPUSCULAR HGB CONC 34 g/dl (31.0-36.0); MEAN CORPUSCULAR VOLUME 88 fL (82-100); MONOCYTES # (AUTO) 1.2 K/uL (0.1-1.30); MONOCYTES % (AUTO) 9.3 % (2.0-12.0); NEUTROPHILS # (AUTO) 8.6 K/uL (1.8-8.9); NEUTROPHILS % (AUTO) 65.7 % (43.0-81.0); PLATELET COUNT (AUTO) 252 K/uL (150-450); RED BLOOD CELL COUNT(AUTO) 3.63 MIL/uL (4.0-5.2); WHITE BLOOD COUNT (AUTO) 13.1 K/uL (4.3-11.0)
[2020-09-11 19:44] LABS: ALANINE AMINOTRANSFERASE 13 U/L (12-78); ALBUMIN 2.9 g/dL (3.4-5.0); ALKALINE PHOSPHATASE 105 U/L (46-116); ASPARTATE AMINOTRANSFERASE 13 U/L (15-37); BILIRUBIN,DIRECT 0.1 mg/dL (0.0-0.2); BILIRUBIN,TOTAL 0.3 mg/dL (0.2-1.0); TOTAL PROTEIN, SERUM 7.5 g/dL (6.4-8.2)
[2020-09-11 19:57] LABS: CHOLESTEROL 219 mg/dL (<200); HDL CHOLESTEROL 47 mg/dL (40-60); LDL 93 mg/dL (0-99); TRIGLYCERIDES 353 mg/dL (30-150)
--- NOTE | 2020-09-11 20:25 | NUR ---
EPIC PAGED PER DR HAMMOND.
--- NOTE | 2020-09-11 21:31 | NUR ---
REPORT GIVEN TO CHRISTINE DRISCOLL FOR JENA.
--- NOTE | 2020-09-11 21:40 | NUR ---
PATIENT TAKEN UP TO ASSIGNED ROOM FOR JENA.
--- NOTE | 2020-09-11 21:50 | NUR ---
RN ADMITTING NOTE PATIENT TRANSFERRED TO TELE RM 324-2. PATIENT WALKED FROM [facility] TO BED. PATIENT HAS MILD WEAKNESS ON BOTH UPPER AND LOWER EXTREMITY. RIGHT SIDE MORE THAN LEFT D/T STROKE FROM THREE MONTHS AGO. PATIENT HAS A MILD FACIAL ASYMMETRY ON RIGHT SIDE D/T STROKE FROM 3 MONTHS AGO WELL PER PATIENT. PATIENT A/O X 3, ABLE TO MAKE NEEDS KNOWN AND FOLLOWS COMMANDS. BLOOD SUGAR UPON ADMISSION WAS 167 MG/DL. TOLERATES ROOM ARE WITH 96% O2 SATURATION. TELE MONITOR READS SR [address] INVERSION CONSISTENT WITH EKG IN THE ER. PATIENT DOES NOT COMPLAIN OF ANY CHEST PAIN/PAIN IN GENERAL. ORIENTED PATIENT TO ROOM, PRIMARY NURSE, AND DRAG DOWN. BELONGINGS INVENTORIED. SAFETY MEASURES IN PLACE: BED IN LOCKED AND LOWEST POSITION, CALL LIGHT WITHIN REACH, SIDE RAILS UP, AND BED ALARM ON. WILL MONITOR PATIENT CLOSELY.
[2020-09-11 22:00] VITALS: BP 117/58
--- NOTE | 2020-09-11 23:00 | NUR ---
CALLED SON CHUNG: [phone], FOR MORE ADMISSION INFORMATION AND FOR HOME MEDS LIST. HOME MEDS NOT AVAILABLE TO SON AT THIS TIME. WILL BRING HOME MEDS IN AM WHEN HE COMES TO VISIT.
[2020-09-11] MEDS ORDERED: Z GUARD REMEDY 2 OZ OINT TP PRN (23:30)
[2020-09-11] MEDS ORDERED: MAG HYDROX/AL HYDROX/SIMETH 30 ML UDC PO PRN (23:30)
[2020-09-11] MEDS ORDERED: ONDANSETRON HCL/PF 4 MG/2 ML VIAL IVP PRN (23:30)
[2020-09-11] MEDS ORDERED: ACETAMINOPHEN 325 MG TABLET PO PRN (23:30)
[2020-09-11] MEDS ORDERED: IV NS 0.9% 1,000 ML IV PRN (23:30)
[2020-09-11] MEDS ORDERED: MAGNESIUM HYDROXIDE 30 ML UDC PO PRN (23:30)
[2020-09-11] MEDS ORDERED: DEXTROSE 50%-WATER 50 ML DISP.SYRIN IV PRN (23:30)
[2020-09-12] VITALS: BP 118/50
[2020-09-12 04:00] VITALS: BP 148/70
--- NOTE | 2020-09-12 04:00 | NUR ---
PATIENT STATING " I DON'T FEEL GOOD". SHE REPORTS HAVING HEADACHE, AND "IT'S LIKE THERE'S NOT ENOUGH AIR". PATIENT STILL ABLE TO FOLLOW COMMANDS, NO NEURO CHANGES, REMAINS A/O X 3. BS CHECKED 188 MG/DL. PATIENT SATTING AT 96% ON RA. PATIENT WAS PROVIDED 2L OF OXYGEN SUPPLEMENTATION VIA NASAL CANNULA TO HELP PATIENT'S BREATHING. PATIENT REFUSED PAIN MEDICINE AND DENIES ANY DIZZINESS. WILL RE-ASSESS PATIENT.
--- NOTE | 2020-09-12 04:30 | NUR ---
PATIENT SLEEPING BUT EASILY AROUSED, NOW FEELS MUCH BETTER WITH OXYGEN SUPPLEMENTATION, NO SOB OBSERVED.
[2020-09-12 06:18] LABS: BASOPHILS % (AUTO) 0.5 % (0.0-2.0); EOSINOPHILS % (AUTO) 4.6 % (0.0-6.0); HEMATOCRIT 29 % (33-45); LYMPHOCYTES # (AUTO) 2.1 K/uL (0.8-4.8); LYMPHOCYTES % (AUTO) 21.5 % (20.0-44.0); MEAN CORPUSCULAR HGB CONC 34 g/dl (31.0-36.0); MEAN CORPUSCULAR VOLUME 89 fL (82-100); MONOCYTES # (AUTO) 0.9 K/uL (0.1-1.30); MONOCYTES % (AUTO) 9.2 % (2.0-12.0); NEUTROPHILS # (AUTO) 6.4 K/uL (1.8-8.9); NEUTROPHILS % (AUTO) 64.2 % (43.0-81.0); PLATELET COUNT (AUTO) 200 K/uL (150-450); RED BLOOD CELL COUNT(AUTO) 3.31 MIL/uL (4.0-5.2)
[2020-09-12] MEDS: INSULIN REGULAR, HUMAN 100 UNIT/ML 3 ML VIAL SQ PRN ×2 (06:18→11:42)
[2020-09-12 06:34] LABS: ALBUMIN 2.4 g/dL (3.4-5.0); BILIRUBIN,TOTAL 0.3 mg/dL (0.2-1.0); CALCIUM, SERUM 8.3 mg/dL (8.5-10.1); CREATININE 1.2 mg/dL (0.6-1.3); MAGNESIUM 1.7 mg/dL (1.8-2.4); PHOSPHORUS 3.9 mg/dL (2.5-4.9); POTASSIUM 4.4 mmol/L (3.5-5.1); TOTAL PROTEIN, SERUM 6.2 g/dL (6.4-8.2)
[2020-09-12 06:54] LABS: THYROID STIMULATING HORMONE 1.001 uIU/mL (0.358-3.74)
--- NOTE | 2020-09-12 06:56 | NUR ---
RN CLOSING NOTE PATIENT IN BED AWAKE, EATING PUDDING. PATIENT'S BS THIS MORNING WAS 211 MG/DL 4 UNITS INSULIN GIVEN FOR COVERAGE. PATIENT REMAINS A/O X 3. PATIENT WAS COMPLAINING OF CHEST PAIN, TYLENOL WAS GIVEN. NO CHANGES IN PATIENT'S EKG, VITALS STABLE, CHARGE NURSE AWARE. PATIENT'S CHEST PAIN "LESS" AFTER TYLENOL. O2 SAT 99% WITH 2L OF OXYGEN SUPPLEMENTATION. SAFETY MEASURES IMPLEMENTED. ALL NEEDS MET AND ATTENDED, ALL ORDERS CARRIED OUT. WILL ENDORSE TO DAY SHIFT NURSE FOR JENA.
[2020-09-12] MEDS ORDERED: PANTOPRAZOLE 40 MG TABLET.DR PO SCH (07:30)
[2020-09-12] MEDS: BLOOD SUGAR DIAGNOSTIC 1 EACH STRIP IN SCH ×2 (07:33→11:42)
[2020-09-12 08:00] VITALS: BP 155/76
[2020-09-12] MEDS ORDERED: ASPIRIN 325 MG TABLET PO SCH (09:00)
[2020-09-12] MEDS: Magnesium 1GM/D5W 100ML PREMIX 100 ML IV SCH (10:37)
[2020-09-12 12:00] VITALS: BP 154/66
[2020-09-12] MEDS ORDERED: ATORVASTATIN 40 MG TABLET PO SCH (22:00)
[2020-09-13] MEDS ORDERED: ASPIRIN 325 MG TABLET PO SCH (09:00)
== END 2020-09-12 14:55 | disposition home or self-care (01) | DRG 637 ==
LOC: ER 18:56 → TELE 20:36
PROVIDERS: ADMIT Hospitalist; ATTEND Nurse Practitioner Acute Care
DX: E11.649 Type 2 diabetes mellitus with hypoglycemia without coma (principal); G93.41 Metabolic encephalopathy; Z68.42 Body mass index [BMI] 45.0-49.9, adult; G45.9 Transient cerebral ischemic attack, unspecified; E78.5 Hyperlipidemia, unspecified; I10 Essential (primary) hypertension; E66.9 Obesity, unspecified; Z86.73 Personal history of transient ischemic attack (TIA), and cerebral infarction without residual deficits; Z98.890 Other specified postprocedural states; Z89.022 Acquired absence of left finger(s); Z79.899 Other long term (current) drug therapy; Z79.82 Long term (current) use of aspirin; Z79.4 Long term (current) use of insulin; K76.0 Fatty (change of) liver, not elsewhere classified
CPT/HCPCS: 36415; 70450-TC; 71045-TC; 80048-TC; 80053-TC; 80061-TC; 80076-TC; 82962-TC; 83605-TC; 83735-TC; 84100-TC; 84443-TC; 84484-TC; 85025-TC; 85730-TC; 87081-TC; 97112-TC; 97116-TC; 97530-TC; C9803; G0378; J1815; J3475; J7030